=== PATIENT | male | born 1950 | race Caucasian/White ===

== ENCOUNTER 2022-06-27 14:07 | Outpatient (CLI) | payer OTHER, BC ==
[2022-06-27 14:44] LABS: BASOPHILS # (AUTO) 0.1 X10'3 (0-0.2); BASOPHILS % (AUTO) 1.2 % (0-1); EOSINOPHILS # (AUTO) 0.5 X10'3 (0-0.9); EOSINOPHILS % (AUTO) 9.4 % (0-6); HEMATOCRIT 46.5 % (42.0-52.0); HEMOGLOBIN 15.4 g/dl (14.0-17.9); LYMPHOCYTES # (AUTO) 1.8 X10'3 (1.1-4.8); LYMPHOCYTES % (AUTO) 31.2 % (21-51); MEAN CORPUSCULAR HEMOGLOBIN 30.4 PG (27.0-31.0); MEAN CORPUSCULAR HGB CONC 33.1 g/dL (33.0-36.5); MEAN CORPUSCULAR VOLUME 91.8 FL (78-98); MONOCYTES # (AUTO) 0.8 X10'3 (0-0.9); MONOCYTES % (AUTO) 14.3 % (2-12); NEUTROPHILS # (AUTO) 2.5 X10'3 (1.8-7.7); NEUTROPHILS % (AUTO) 43.9 % (42-75); PLATELET COUNT 251 X10'3 (140-440); RED BLOOD COUNT 5.06 X10'6 (4.70-6.10); RED CELL DISTRIBUTION WIDTH 13.7 % (11.5-14.5); WHITE BLOOD COUNT 5.7 X10'3 (4.5-11.0)
[2022-06-27 14:54] LABS: ALBUMIN 3.8 G/DL (3.4-5.0); ANION GAP 2 (8-16); BLOOD UREA NITROGEN 24 MG/DL (7-18); BUN/CREATININE RATIO 24.5 (5.4-32.0); CALCIUM 9.1 MG/DL (8.5-10.1); CHLORIDE 105 MMOL/L (99-107); CREATININE 0.98 MG/DL (0.60-1.10); GLUCOSE 98 MG/DL (70-104); SODIUM 136 MMOL/L (135-145); TOTAL CARBON DIOXIDE 29.5 MMOL/L (24-32); eGFR 75 ML/MIN
[2022-06-27 14:58] LABS: APTT 28 SECONDS (22-32)
== END 2022-06-27 23:00 | disposition home or self-care (01) ==
LOC: LAB 14:07 → EDSTATUS 07-02 12:30
PROVIDERS: ATTEND Student in an Organized Health Care Education/Training Program
DX: I48.91 Unspecified atrial fibrillation (principal); I42.0 Dilated cardiomyopathy
CPT/HCPCS: 36415; 80048; 85025; 85610; 85730; 92960

== ENCOUNTER 2025-05-05 07:01 | Outpatient (CLI) | payer MEDICARE, BC ==
[~2025-05-05] VITALS: Ht 185.4 cm; Wt 99.8 kg
[2025-05-05 07:30] LABS: TOTAL HEMOGLOBIN 17.6 G/dl (13.5-17.5)
[2025-05-05] MEDS: albuterol 2.5 MG/3 ML nebule NEB ONE (08:10)
[2025-05-05 08:26] VITALS: PULSE 88; RESP 14; O2SAT 96
[2025-05-05 08:37] VITALS: PULSE 77; RESP 14
--- NOTE | 2025-05-06 15:54 | PROCEDURE NOTE - Respiratory ---
Procedure Note-Respiratory Providers to Copies To 1: ARNOLD LIM MD Procedure Name: This is a complete pulmonary function study dated May 05, 2025. Hemoglobin measurement was done as part of the study. Spirometry measurements: There is slight reduction in the forced vital capacity. The FEV1 is in the lower range of normal. The FEV1 ratio is elevated. All of the measured flow rates are excellent. After inhaled br onchodilator was administered, there is no appreciable change in the flow volume curve. Spirometry indicates a restrictive ventilatory defect. Lung volume measurements: All of the lung volume measurements are symmetrically reduced. This confirms a restrictive ventilatory defect. Lung diffusion measurement: The DLCO measurement is in the normal range. The KVO measurement is normal but there is slight reduction in the alveolar volume. It is noted that the hemoglobin measurement is normal. Airway resistance measurement: The airway resistance is normal. Conclusion: This study is abnormal. There is evidence for [id number] restrictive ventilatory defect. The lung diffusion capacity is in the normal range. There is no evidence for obstructive lung disease. We have no previous studies for comparison. Because of this abnormal lung function, this patient would not be the best candidate for amiodarone therapy. CARLI TOLBERT MD May 06, 2025 15:54
== END 2025-05-05 23:59 | disposition home or self-care (01) ==
LOC: RT 07:01
PROVIDERS: ATTEND Internal Medicine Cardiovascular Disease
DX: R06.02 Shortness of breath (principal); R06.2 Wheezing; I48.91 Unspecified atrial fibrillation; Z79.2 Long term (current) use of antibiotics
CPT/HCPCS: 85018; 94060; 94727; 94729; 94760